=== PATIENT | female | born 1965 | race Caucasian/White ===

== ENCOUNTER 2017-11-17 20:35 | Emergency (ER) | payer OTHER ==
[~2017-11-17] VITALS: Ht 160 cm; Wt 85.0 kg
[~2017-11-17 20:35] MED LIST: ATEN1TAB75 PO; EXCETAB2; GABA300C3 PO; TRAM50TA PO; VENL75TA91 PO
[2017-11-17 20:53] VITALS: BP 167/96; PULSE 89; RESP 18; TEMP 98.3; O2SAT 98
[2017-11-17] MEDS ORDERED: GABA800T PO (21:07)
[2017-11-17] MEDS ORDERED: LITH300C2 PO (21:07)
[2017-11-17] MEDS ORDERED: ATEN100T PO (21:07)
[2017-11-17] MEDS ORDERED: HYDR-3366 PO (21:07)
[2017-11-17] MEDS ORDERED: SERO25TA PO (21:07)
[2017-11-17] MEDS ORDERED: ATENOLOL 100 MG TAB PO ONE (21:15)
--- NOTE | 2017-11-17 21:20 | PD ---
HPI Chief Complaint: Psychiatric Symptoms Time Seen by Provider: 21:04 Travel History International Travel<30 days: No Contact w/Intl Traveler<30days: No Traveled to known affect area: No History of Present Illness HPI 52-year-old white female presents emergency department under a [place] act by PD. Patient has history of bipolar disorder, chronic neck and back pain, neuropathy and hypertension. Patient states that she has been feeling increasingly depressed. She is in the process of being weaned off her Xanax and lithium and she is starting Seroquel. This is been going on for the past month. She states that she has had thoughts of self-harm. She also cuts. She last cut earlier this week to her left lower leg. She states that she feels suicidal but has no current plan. She would like help. She called police herself. She denies any self-harm today. No homicidal ideation. She did not take her evening dose of blood pressure medicine. She typically takes 100 mg of atenolol twice daily. PFSH Past Medical History Bipolar Disorder: Yes Anxiety: Yes Depression: Yes Hypertension: Yes Medical other: Yes (HIGH CALCIUM AND LOW VITAMIN D) Neurologic: Yes (NEUROPATHY FROM CHRONIC NECK AND BACK PAIN) Tetanus Vaccination: < 5 Years Influenza Vaccination: No ?: Not Menopausal: Yes Dilation and Curettage (D&C): Yes (X2) Tubal Ligation: Yes Past Surgical History Section: Yes Gynecologic Surgery: Yes (RIGHT LUMPECTOMY X2 WITH DUCT REMOVAL, LAP RIGHT OVARIAN CYST REMOVAL) Social History Alcohol Use: Yes (DAILY) Tobacco Use: Yes Substance Use: No Allergies-Medications (Allergen,Severity, Reaction): Coded Allergies: dexamethasone (Unverified Allergy, Severe, THROAT CLOSES UP, 04/04/17) Reported Meds & Prescriptions Reported Meds & Active Scripts Active Reported Gabapentin 800 Mg Tab 800 Mg PO DAILY [place] (Hydrocodone-Acetaminophen) 10-325 Mg Tab 1 Tab PO TID PRN Jackpot Carbonate 300 Mg Cap 300 Mg PO HS Seroquel (Quetiapine Fumarate) 25 Mg Tab 25 Mg PO HS Atenolol 100 Mg Tab 100 Mg PO BID Review of Systems Except as stated in HPI: all other systems reviewed are Neg General / Constitutional: No: Fever Eyes: No: Visual changes HENT: No: Headaches Cardiovascular: No: Chest Pain or Discomfort Respiratory: No: Shortness of Breath Gastrointestinal: No: Abdominal Pain Genitourinary: No: Dysuria Musculoskeletal: No: Pain Skin: No Rash Neurologic: No: Weakness Psychiatric: Positive: Depression, Suicidal Ideations, Mood Disorder, No: Anxiety, Disorder of Thought, Substance Abuse, Homicidal Ideation Endocrine: No: Polydipsia Hematologic/Lymphatic: No: Easy Bruising Physical Exam Narrative GENERAL: Well-nourished, well-developed patient. SKIN: Warm and dry. Patient has healing superficial cuts to her left proximal inner calf. No signs of infection. This is in the stages of healing. HEAD: Normocephalic and atraumatic. EYES: No scleral icterus. No injection or drainage. ENT: No nasal drainage noted. Mucous membranes pink. Airway patent. NECK: Supple, trachea midline. Moves head freely without obvious discomfort. CARDIOVASCULAR: Regular rate and rhythm without murmurs, gallops, or rubs. RESPIRATORY: Breath sounds equal bilaterally. No accessory muscle use. GASTROINTESTINAL: Abdomen soft, non-tender, nondistended. EXTREMITIES: No cyanosis or edema. BACK: Nontender without obvious deformity. No CVA tenderness. NEURO: Patient is alert and oriented. no sensorimotor deficits. Nonfocal. Normal speech. PSYCH: No delusions. No auditory or visual hallucinations. Data Data Last Documented VS Vital Signs Date Time Temp Pulse Resp B/P (MAP) Pulse Ox O2 Delivery O2 Flow Rate FiO2 11/17/17 20:53 98.3 89 18 167/96 (119) 98 Orders Orders Complete Blood Count With Diff (11/17/17 21:13) Comprehensive Metabolic Panel (11/17/17 21:13) Thyroid Stimulating Hormone (11/17/17 21:13) Psych Screen (11/17/17 21:13) Jackpot (Li) (11/17/17 21:13) Drug Screen, Random Urine (11/17/17 21:13) Alcohol (Ethanol) (11/17/17 21:13) Salicylates (Aspirin) (11/17/17 21:13) Tylenol (Acetaminophen) (11/17/17 21:13) Atenolol (Tenormin) (11/17/17 21:15) Labs Laboratory Tests Test 11/17/17 21:20 White Blood Count 6.5 TH/MM3 Red Blood Count 4.63 MIL/MM3 Hemoglobin 15.0 GM/DL Hematocrit 43.8 % Mean Corpuscular Volume 94.4 FL Mean Corpuscular Hemoglobin 32.3 PG Mean Corpuscular Hemoglobin Concent 34.2 % Red Cell Distribution Width 13.0 % Platelet Count 270 TH/MM3 Mean Platelet Volume 9.9 FL Neutrophils (%) (Auto) 44.4 % Lymphocytes (%) (Auto) 46.5 % Monocytes (%) (Auto) 5.1 % Eosinophils (%) (Auto) 2.7 % Basophils (%) (Auto) 1.3 % Neutrophils # (Auto) 2.9 TH/MM3 Lymphocytes # (Auto) 3.0 TH/MM3 Monocytes # (Auto) 0.3 TH/MM3 Eosinophils # (Auto) 0.2 TH/MM3 Basophils # (Auto) 0.1 TH/MM3 CBC Comment DIFF FINAL Differential Comment Blood Urea Nitrogen 14 MG/DL Creatinine 0.85 MG/DL Random Glucose 93 MG/DL Total Protein 8.3 GM/DL Albumin 4.3 GM/DL Calcium Level 9.0 MG/DL Alkaline Phosphatase 62 U/L Aspartate Amino Transf (AST/SGOT) 25 U/L Alanine Aminotransferase (ALT/SGPT) 24 U/L Total Bilirubin 0.4 MG/DL Sodium Level 140 MEQ/L Potassium Level 3.9 MEQ/L Chloride Level 109 MEQ/L Carbon Dioxide Level 19.5 MEQ/L Anion Gap 12 MEQ/L Estimat Glomerular Filtration Rate 71 ML/MIN Thyroid Stimulating Hormone 3rd Gen 1.080 uIU/ML Salicylates Level 5.0 MG/DL Urine Opiates Screen NEG Acetaminophen Level LESS THAN 2.0 MCG/ML Urine Barbiturates Screen NEG Urine Amphetamines Screen NEG Urine Benzodiazepines Screen NEG Jackpot Level 0.2 MEQ/L Urine Cocaine Screen NEG Urine Cannabinoids Screen NEG Ethyl Alcohol Level 216 MG/DL MDM Medical Decision Making Medical Screen Exam Complete: Yes Emergency Medical Condition: Yes Medical Record Reviewed: Yes Interpretation(s) Laboratory Tests Test 11/17/17 21:20 White Blood Count 6.5 TH/MM3 Red Blood Count 4.63 MIL/MM3 Hemoglobin 15.0 GM/DL Hematocrit 43.8 % Mean Corpuscular Volume 94.4 FL Mean Corpuscular Hemoglobin 32.3 PG Mean Corpuscular Hemoglobin Concent 34.2 % Red Cell Distribution Width 13.0 % Platelet Count 270 TH/MM3 Mean Platelet Volume 9.9 FL Neutrophils (%) (Auto) 44.4 % Lymphocytes (%) (Auto) 46.5 % Monocytes (%) (Auto) 5.1 % Eosinophils (%) (Auto) 2.7 % Basophils (%) (Auto) 1.3 % Neutrophils # (Auto) 2.9 TH/MM3 Lymphocytes # (Auto) 3.0 TH/MM3 Monocytes # (Auto) 0.3 TH/MM3 Eosinophils # (Auto) 0.2 TH/MM3 Basophils # (Auto) 0.1 TH/MM3 CBC Comment DIFF FINAL Differential Comment Blood Urea Nitrogen 14 MG/DL Creatinine 0.85 MG/DL Random Glucose 93 MG/DL Total Protein 8.3 GM/DL Albumin 4.3 GM/DL Calcium Level 9.0 MG/DL Alkaline Phosphatase 62 U/L Aspartate Amino Transf (AST/SGOT) 25 U/L Alanine Aminotransferase (ALT/SGPT) 24 U/L Total Bilirubin 0.4 MG/DL Sodium Level 140 MEQ/L Potassium Level 3.9 MEQ/L Chloride Level 109 MEQ/L Carbon Dioxide Level 19.5 MEQ/L Anion Gap 12 MEQ/L Estimat Glomerular Filtration Rate 71 ML/MIN Thyroid Stimulating Hormone 3rd Gen 1.080 uIU/ML Salicylates Level 5.0 MG/DL Urine Opiates Screen NEG Acetaminophen Level LESS THAN 2.0 MCG/ML Urine Barbiturates Screen NEG Urine Amphetamines Screen NEG Urine Benzodiazepines Screen NEG Jackpot Level 0.2 MEQ/L Urine Cocaine Screen NEG Urine Cannabinoids Screen NEG Ethyl Alcohol Level 216 MG/DL Differential Diagnosis MDM: High Differential diagnoses: Schizophrenia, schizoaffective disorder, bipolar, anxiety, depression, adjustment reaction, mood disorder NOS, ODD, depressive disorder NOS, dementia, dementia with agitation, psychosis NOS, substance induced mood disorder, DMDD, Asperger syndrome, infection,electrolyte abnormality, malingering. Narrative Course Mental health screening discussed with the patient. Psychiatric screen ordered. Patient is given her atenolol 100 mg p.o. here. The patient is now requesting the rest of her eating medications. She does have her bottles containing all of her medications. The patient is allowed to take her evening medications. This will be documented in the nursing note. The patient has been medically cleared. This is medical clearance for psychiatric admission, bipolar, cutting Diagnosis Primary Impression: Medical clearance for psychiatric admission Additional Impressions: Bipolar Cutting Condition: Stable Jonel Zee Nov 17, 2017 21:20
[2017-11-17 21:42] LABS: AUTOMATED NEUTROPHIL # 2.9 TH/MM3 (1.8-7.7); BASOPHIL # 0.1 TH/MM3 (0-0.2); BASOPHIL % 1.3 % (0.0-2.0); EOSINOPHIL # 0.2 TH/MM3 (0-0.4); EOSINOPHIL % 2.7 % (0.0-4.0); HEMATOCRIT 43.8 % (35.0-46.0); LYMPH % 46.5 % (9.0-44.0); MEAN CELL VOLUME 94.4 FL (80.0-100.0); MEAN CORPUSCULAR HEMOGLOBIN 32.3 PG (27.0-34.0); MEAN CORPUSCULAR HGB CONC 34.2 % (32.0-36.0); MEAN PLATELET VOLUME 9.9 FL (7.0-11.0); MONO % 5.1 % (0.0-8.0); MONOCYTE # 0.3 TH/MM3 (0-0.9); NEUT % 44.4 % (16.0-70.0); PLATELET COUNT 270 TH/MM3 (150-450); RED BLOOD COUNT 4.63 MIL/MM3 (4.00-5.30); WHITE BLOOD COUNT 6.5 TH/MM3 (4.0-11.0)
[2017-11-17 21:52] LABS: ALBUMIN 4.3 GM/DL (3.4-5.0); ALT (GPT) 24 U/L (10-53); AST (GOT) 25 U/L (15-37); BICARBONATE 19.5 MEQ/L (21.0-32.0); BLOOD UREA NITROGEN 14 MG/DL (7-18); CHLORIDE 109 MEQ/L (98-107); CREATININE 0.85 MG/DL (0.50-1.00); GLOMERULAR FILTRATION RATE 71 ML/MIN (>89); GLUCOSE,RANDOM 93 MG/DL (74-106); SODIUM (NA) 140 MEQ/L (136-145)
[2017-11-17 22:02] LABS: ALKALINE PHOSPHATASE 62 U/L (45-117); TOTAL BILIRUBIN ADULT 0.4 MG/DL (0.2-1.0); TOTAL PROTEIN 8.3 GM/DL (6.4-8.2)
[2017-11-17 22:04] LABS: ACETAMINOPHEN LESS THAN 2.0 MCG/ML (10.0-30.0)
[2017-11-18 07:10] VITALS: BP 144/66; PULSE 66; RESP 19; O2SAT 98
[2017-11-18 17:43] VITALS: BP 125/75; PULSE 80; RESP 16; O2SAT 97
[2017-11-19 02:47] VITALS: BP 162/88; PULSE 90; RESP 16; O2SAT 98
[2017-11-19] MEDS ORDERED: ATENOLOL 100 MG TAB PO ONE (03:00)
--- NOTE | 2017-11-19 07:51 | PD ---
Physical Exam Date Seen by Provider: Nov 19, 2017 Time Seen by Provider: 07:49 Narrative 52-year-old female previously brought in under the [place] act and medically cleared for psychiatric evaluation, has been seen by the psychiatrist and deemed psychiatrically stable for discharge at this time. Patient remains medically stable for discharge. Follow-up will be based on the psychiatric note. Data Data Last Documented VS Vital Signs Date Time Temp Pulse Resp B/P (MAP) Pulse Ox O2 Delivery O2 Flow Rate FiO2 11/19/17 02:47 90 16 162/88 (112) 98 Room Air 11/17/17 20:53 98.3 Orders Orders Complete Blood Count With Diff (11/17/17 21:13) Comprehensive Metabolic Panel (11/17/17 21:13) Thyroid Stimulating Hormone (11/17/17 21:13) Psych Screen (11/17/17 21:13) [place] (Li) (11/17/17 21:13) Drug Screen, Random Urine (11/17/17 21:13) Alcohol (Ethanol) (11/17/17 21:13) Salicylates (Aspirin) (11/17/17 21:13) Tylenol (Acetaminophen) (11/17/17 21:13) Atenolol (Tenormin) (11/17/17 21:15) Diet Regular Basic (11/18/17 Breakfast) Atenolol (Tenormin) (11/19/17 03:00) Diet Regular Basic (11/19/17 Breakfast) Labs Laboratory Tests Test 11/17/17 21:20 White Blood Count 6.5 TH/MM3 Red Blood Count 4.63 MIL/MM3 Hemoglobin 15.0 GM/DL Hematocrit 43.8 % Mean Corpuscular Volume 94.4 FL Mean Corpuscular Hemoglobin 32.3 PG Mean Corpuscular Hemoglobin Concent 34.2 % Red Cell Distribution Width 13.0 % Platelet Count 270 TH/MM3 Mean Platelet Volume 9.9 FL Neutrophils (%) (Auto) 44.4 % Lymphocytes (%) (Auto) 46.5 % Monocytes (%) (Auto) 5.1 % Eosinophils (%) (Auto) 2.7 % Basophils (%) (Auto) 1.3 % Neutrophils # (Auto) 2.9 TH/MM3 Lymphocytes # (Auto) 3.0 TH/MM3 Monocytes # (Auto) 0.3 TH/MM3 Eosinophils # (Auto) 0.2 TH/MM3 Basophils # (Auto) 0.1 TH/MM3 CBC Comment DIFF FINAL Differential Comment Blood Urea Nitrogen 14 MG/DL Creatinine 0.85 MG/DL Random Glucose 93 MG/DL Total Protein 8.3 GM/DL Albumin 4.3 GM/DL Calcium Level 9.0 MG/DL Alkaline Phosphatase 62 U/L Aspartate Amino Transf (AST/SGOT) 25 U/L Alanine Aminotransferase (ALT/SGPT) 24 U/L Total Bilirubin 0.4 MG/DL Sodium Level 140 MEQ/L Potassium Level 3.9 MEQ/L Chloride Level 109 MEQ/L Carbon Dioxide Level 19.5 MEQ/L Anion Gap 12 MEQ/L Estimat Glomerular Filtration Rate 71 ML/MIN Thyroid Stimulating Hormone 3rd Gen 1.080 uIU/ML Salicylates Level 5.0 MG/DL Urine Opiates Screen NEG Acetaminophen Level LESS THAN 2.0 MCG/ML Urine Barbiturates Screen NEG Urine Amphetamines Screen NEG Urine Benzodiazepines Screen NEG [place] Level 0.2 MEQ/L Urine Cocaine Screen NEG Urine Cannabinoids Screen NEG Ethyl Alcohol Level 216 MG/DL [facility] Medical Record Reviewed: Yes Supervised Visit with MELANI: Yes Narrative Course 52-year-old female previously brought in under the [place] act and medically cleared for psychiatric evaluation, has been seen by the psychiatrist and deemed psychiatrically stable for discharge at this time. Patient remains medically stable for discharge. Follow-up will be based on the psychiatric note. Diagnosis Primary Impression: Medical clearance for psychiatric admission Additional Impressions: Bipolar Cutting Referrals: Primary Care Physician Psychiatrist Patient Instructions: General Instructions Disposition: 01 DISCHARGE HOME Condition: Stable Nicholas Marques Nov 19, 2017 07:51
[2017-11-19 08:00] VITALS: BP 171/90; PULSE 83; RESP 17; TEMP 98.5; O2SAT 98
[2017-11-19 08:11] VITALS: BP 171/90; TEMP 98.5
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
== END 2017-11-19 08:21 | disposition home or self-care (01) ==
LOC: NEPD 20:35
DX: F10.14 Alcohol abuse with alcohol-induced mood disorder (principal); Y90.7 Blood alcohol level of 200-239 mg/100 ml; F31.9 Bipolar disorder, unspecified; R45.851 Suicidal ideations; G62.9 Polyneuropathy, unspecified; I10 Essential (primary) hypertension; M79.7 Fibromyalgia; Z72.0 Tobacco use; Z91.5 Personal history of self-harm
CPT/HCPCS: 80053; 80178; 80307; 84443; 85025; 99284

== ENCOUNTER 2018-02-05 16:19 | Emergency (ER) | payer OTHER ==
[~2018-02-05] VITALS: Ht 160 cm; Wt 84.0 kg
[~2018-02-05 16:19] MED LIST changes: +ATEN100T PO; -ATEN1TAB75 PO; -EXCETAB2; -GABA300C3 PO; +GABA800T PO; +HYDR-3366 PO; +LITH300C2 PO; +SERO25TA PO; -TRAM50TA PO; -VENL75TA91 PO
[2018-02-05] MEDS ORDERED: IPRAAER INH (17:34)
[2018-02-05] MEDS ORDERED: VITD400 PO (17:38)
[2018-02-05] MEDS ORDERED: CLON0.2T PO (17:39)
[2018-02-05] MEDS ORDERED: LISI-515 PO (17:39)
[2018-02-05] MEDS ORDERED: OMEG1CAP41 (17:42)
[2018-02-05] MEDS ORDERED: VISI0.053 EACH EYE (17:43)
[2018-02-05] MEDS ORDERED: IBUPROFEN 800 MG TAB PO ONE (18:15)
--- NOTE | 2018-02-05 18:31 | PD ---
HPI Chief Complaint: Psychiatric Symptoms Time Seen by Provider: 18:12 Travel History International Travel<30 days: No Contact w/Intl Traveler<30days: No Traveled to known affect area: No History of Present Illness HPI 52-year-old female presents to the emergency department under Alvares act. She was sent here from [facility], after being medically cleared, for psychological evaluation. According to medical records from [facility] the patient took 50, 100 mg atenolol in an attempt to kill herself on February 03. The patient admits to taking the medications. She says she was drunk at the time and has been drinking daily, and her action was exacerbated by her alcohol use. She denies suicidal ideation at this time. She has history of suicidal attempt by overdosing on pills in the past. She denies homicidal ideations. Denies auditory or visual hallucinations. Denies illicit drug use. Aggravated by alcohol use. No known relieving factors. Symptoms are moderate to severe in severity. Duration chronic. She is complaining of a headache that has been on and off. She denies chest pain, shortness of breath, abdominal pain, nausea, vomiting, change in urine or stool. She is complaining of left upper back pain also. Denies anticoagulant therapy. Primary care provider is Dr. Rodas. Allergies to dexamethasone. History of bipolar disorder and hypertension. Has no other medical complaints. No other modifying factors or associated signs and symptoms. PFSH Past Medical History Bipolar Disorder: Yes Anxiety: Yes Depression: Yes Patient Takes Glucophage: No Hypertension: Yes Neurologic: Yes (NEUROPATHY FROM CHRONIC NECK AND BACK PAIN) Reproductive: Yes ?: Not Menopausal: Yes : 3 Para: 2 Miscarriage: 0 : 1 Dilation and Curettage (D&C): Yes (X2) Tubal Ligation: Yes Past Surgical History Section: Yes Gynecologic Surgery: Yes (RIGHT LUMPECTOMY X2 WITH DUCT REMOVAL, LAP RIGHT OVARIAN CYST REMOVAL) Social History Alcohol Use: Yes (DAILY) Tobacco Use: Yes Substance Use: No Allergies-Medications (Allergen,Severity, Reaction): Coded Allergies: dexamethasone (Unverified Allergy, Severe, THROAT CLOSES UP, 02/05/18) Per pt. Reported Meds & Prescriptions Reported Meds & Active Scripts Active Reported Visine Opth Drops (Tetrahydrozoline Opth Drops) 0.05 % Elina 1 Drop EACH EYE QID Whick 3-6-9 1,200 mg Softgel (Fish Oil/Borage/Flax/Om3,6,9#1) 1,200 Mg Capsule Lisinopril 20 Mg Tab 20 Mg PO DAILY Clonidine (Clonidine HCl) 0.2 Mg Tab 0.2 Mg PO BID PRN Vitamin D3 (Cholecalciferol) 400 Unit Tab 400 Units PO DAILY Combivent Respimat Inh (Ipratropium-Albuterol Inh) 20-100 Long Term/Act Aero 1 Puff INH QID PRN Gabapentin 800 Mg Tab 800 Mg PO DAILY Seroquel (Quetiapine Fumarate) 25 Mg Tab 25 Mg PO HS Atenolol 100 Mg Tab 100 Mg PO BID Review of Systems Except as stated in HPI: all other systems reviewed are Neg Physical Exam Narrative GENERAL: Well-nourished, well-developed feet patient, in no acute distress SKIN: Warm and dry. Skin to left upper back is normal in appearance. HEAD: Atraumatic. Normocephalic. EYES: Pupils equal and round. ENT: Mucosa pink and moist. NECK: Supple. Trachea midline. CARDIOVASCULAR: Regular rate and rhythm. No murmur appreciated. RESPIRATORY: No accessory muscle use. Clear to auscultation. Breath sounds equal bilaterally. GASTROINTESTINAL: Abdomen soft, non-tender, nondistended. Hepatic and splenic margins not palpable. Bowel sounds are active 4 quadrants. MUSCULOSKELETAL: No obvious deformities. No clubbing. No cyanosis. No edema. BACK: No CVA tenderness. Reproducible tenderness to the left upper trapezius musculature of the back. NEUROLOGICAL: Awake and alert. Oriented 3. No obvious cranial nerve deficits. Motor grossly within normal limits. Normal speech. Moves all extremities. 5/5 strength to all extremities. PSYCHIATRIC: No delusional thought processes. No hallucinations. Data Data Orders Orders Diet Regular Basic (02/05/18 Dinner) Ibuprofen (Motrin) (02/05/18 18:15) MDM Medical Decision Making Medical Screen Exam Complete: Yes Emergency Medical Condition: Yes Medical Record Reviewed: Yes Differential Diagnosis Suicidal attempt, overdose, medical clearance for psychiatric admission Narrative Course Patient presents under a Alvares act. She is transferred from [facility] after medical clearance. I reviewed her medical records from [facility] and her labs, urinalysis unremarkable. Physical examination and vital signs are essentially unremarkable. Patient complaining of headache and left upper back pain. Ibuprofen ordered. Psych screen has been ordered. laboratory results are unremarkable, the patient will be medically cleared for psychiatric evaluation and disposition. Diagnosis Primary Impression: Medical clearance for psychiatric admission Additional Impression: Suicide attempt Condition: Stable Carrie Mejia Feb 05, 2018 18:31
[2018-02-05 18:41] VITALS: BP 194/102; PULSE 72; RESP 20; TEMP 97.8; O2SAT 98
[2018-02-05] MEDS: ATENOLOL 100 MG TAB PO SCH (20:22)
[2018-02-05 22:02] VITALS: BP 158/90; PULSE 78; RESP 12
[2018-02-05 23:30] VITALS: BP 168/94; PULSE 82
[2018-02-06] MEDS ORDERED: cloNIDine HCL 0.2 MG TAB PO ONE (00:15)
[2018-02-06 02:00] VITALS: BP 168/98; PULSE 75; RESP 16; O2SAT 99
[2018-02-06 06:39] VITALS: BP 172/96; PULSE 76
[2018-02-06] MEDS: ATENOLOL 100 MG TAB PO SCH (09:00)
--- NOTE | 2018-02-06 09:30 | PD ---
Data Data Last Documented VS Vital Signs Date Time Temp Pulse Resp B/P (MAP) Pulse Ox O2 Delivery O2 Flow Rate FiO2 02/06/18 06:39 76 172/96 (121) 02/06/18 02:00 16 99 Room Air 02/05/18 18:41 97.8 Orders Orders Diet Regular Basic (02/05/18 Dinner) Ibuprofen (Motrin) (02/05/18 18:15) Atenolol (Tenormin) (02/05/18 21:00) Clonidine (Catapres) (02/06/18 00:15) Diet Regular Basic (02/06/18 Breakfast) Ed Discharge Order (02/06/18 09:28) MDM Medical Record Reviewed: Yes Supervised Visit with MELANI: Yes Narrative Course Patient seen and evaluated by Dr. Kincaid with psychiatry, she was deemed safe to be discharged home, Alvares act was lifted by Dr. Kincaid. Patient was given outpatient follow-up. DX: Alcohol induced mood disorder Diagnosis Primary Impression: Medical clearance for psychiatric admission Additional Impressions: Suicide attempt Alcohol abuse with alcohol-induced mood disorder Referrals: [facility] Patient Instructions: General Instructions Additional Instruction: Please follow up with your primary care doctor in 2-3 days Return to the ER if symptoms worsen or progress Return to the ER as needed Disposition: 01 DISCHARGE HOME Condition: Stable María Elena Domínguez DO Feb 06, 2018 09:30
--- NOTE | 2018-02-06 16:08 | PD.PSY.CON ---
Provisional Diagnosis Admission Date [place] I. Polysubstance dependence including alcohol, cocaine, Xanax, history of bipolar disorder [place] II. Borderline personality disorder [place] III. Lower back pain History of Present Illness Service Psychiatry Consult Requested By Suicidal ideation Reason for Consult Suicidal ideation Primary Care Physician Unknown HPI The patient was seen this morning at 8:30 AM The patient is 52-year-old woman, domiciled with her in [place], unemployed, supported by [facility], with psychiatric history of bipolar disorder, polysubstance dependence including Xanax, cocaine, alcohol, opiates, with an extensive history of multiple psychiatric hospitalizations, self cutting behavior, multiple suicidal attempts, she is not in psychotropics, medical history of back pain, who presents to the emergency department under Alvares act. She was sent here from [facility], after being medically cleared, for psychiatric evaluation. According to medical records from [facility] the patient took 50, 100 mg atenolol in an attempt to kill herself on February 03. The patient admits to taking the medications. She says she was drunk at the time and has been drinking daily, and her action was exacerbated by her alcohol use. She denies suicidal ideation at this time. She has history of suicidal attempt by overdosing on pills in the past. She denies homicidal ideations. Denies auditory or visual hallucinations. Denies illicit drug use. Aggravated by alcohol use. No known relieving factors. Symptoms are moderate to severe in severity. Duration operations specialist that has been on and off. She denies chest pain, shortness of breath, abdominal pain, nausea, vomiting, change in urine or stool. She is complaining of left upper back pain also. Denies anticoagulant therapy. Primary care provider is Dr. Rodas. Allergies to dexamethasone. On psychiatric evaluation today the patient is calm , cooperative. She reports that last night she was quite drunk when she took pills impulsively. The patient reports that her intention was not to kill herself, she was just drunk and crazy. The patient reports that she understand that she is a drug addict and she needs help, her major problem right now is the alcohol abuse. She is open to look for help. She denies suicidal and homicidal ideation, she denies visual and auditory hallucinations. Denies depression, anxiety, symptoms of withdrawal, denies psychosis. She is logical, coherent and relevant. Oriented 3. Review of Systems Constitutional: DENIES: Diaphoretic episodes, Fatigue, Fever, Weight gain, Weight loss, Chills, Dizziness, Change in appetite, Night Sweats Endocrine: DENIES: Abnorml menstrual pattern, Heat/cold intolerance, Polydipsia , Polyuria, Polyphagia Eyes: DENIES: Blurred vision, Diplopia, Eye inflammation, Eye pain, Vision loss , Photosensitivity, Double Vision Ears, nose, mouth, throat: DENIES: Tinnitus, Hearing loss, Vertigo, Nasal discharge, Oral lesions, Throat pain, Hoarseness, Ear Pain, Running Nose, Epistaxis, Sinus Pain, Toothache, Odynophagia Respiratory: DENIES: Apneas, Cough, Snoring, Wheezing, Hemoptysis, Sputum production, Shortness of breath Cardiovascular: DENIES: Chest pain, Palpitations, Syncope, Dyspnea on Exertion , PND, Lower Extremity Edema, Orthopnea, Claudication Gastrointestinal: DENIES: Abdominal pain, Black stools, Bloody stools, Constipation, Diarrhea, Nausea, Vomiting, Difficulty Swallowing, Anorexia Genitourinary: DENIES: Abnormal vaginal bleeding, Dysmenorrhea, Dyspareunia, Sexual dysfunction, Urinary frequency, Urinary incontinence, Urgency, Hematuria , Dysuria, Nocturia, Vaginal discharge Musculoskeletal: DENIES: Joint pain, Muscle aches, Stiffness, Joint Swelling, Back pain, Neck pain Integumentary: DENIES: Abnormal pigmentation, Pruritus, Rash, Nail changes, Breast masses, Breast skin changes, Nipple discharge Hematologic/lymphatic: DENIES: Bruising, Lymphadenopathy Immunologic/allergic: DENIES: Eczema, Urticaria Neurologic: DENIES: Abnormal gait, Headache, Localized weakness, Paresthesias, Seizures, Speech Problems, Tremor, Poor Balance Psychiatric: DENIES: Anxiety, Confusion, Mood changes, Depression, Hallucinations, Agitation, Suicidal Ideation, Homicidal Ideation, Delusions Past Family Social History Coded Allergies: dexamethasone (Unverified Allergy, Severe, THROAT CLOSES UP, 02/05/18) Per pt. Reported Medications Tetrahydrozoline Opth Drops (Visine Opth Drops) 0.05 % Elina, 1 DROP EACH EYE QID , #1 BOTTLE 0 Refills 02/05/18 Fish Oil/Borage/Flax/Om3,6,9#1 ([place] 3-6-9 1,200 mg Softgel) 1,200 Mg Capsule 02/05/18 Lisinopril (Lisinopril) 20 Mg Tab, 20 MG PO DAILY, #30 TAB 0 Refills 02/05/18 Clonidine (Clonidine) 0.2 Mg Tab, 0.2 MG PO BID Y for BP>160/80, #60 TAB 0 Refills 02/05/18 Cholecalciferol (Vitamin D3) 400 Unit Tab, 400 UNITS PO DAILY for Nutritional Supplement, #1 TAB 0 Refills 02/05/18 Ipratropium-Albuterol Inh (Combivent Respimat Inh) 20-100 Assisted/Act Aero, 1 PUFF INH QID Y for SOB/WHEEZING, #1 INHALER 0 Refills 02/05/18 Gabapentin (Gabapentin) 800 Mg Tab, 800 MG PO DAILY, #90 TAB 0 Refills 11/17/17 Quetiapine (Seroquel) 25 Mg Tab, 25 MG PO HS, #30 TAB 0 Refills 11/17/17 Atenolol (Atenolol) 100 Mg Tab, 100 MG PO BID for Blood Pressure Management, # 60 TAB 0 Refills 11/17/17 Discontinued Reported Medications Hydrocodone-Acetaminophen ([place]) 10-325 Mg Tab, 1 TAB PO TID Y for PAIN, TAB 0 Refills 11/17/17 [place] Carbonate ([place] Carbonate) 300 Mg Cap, 300 MG PO HS, CAP 0 Refills 11/17/17 Family Psych History No family psychiatric history Social History The patient was born and raised in [place], she losing [place] with her , no kids, unemployed, supported by [employer], her highest level of education is some college Patient's Strengths (min. 2) Verbal communication Physical Exam No tremors, no EPS, no psychomotor agitation retardation Vital Signs Vital Signs Date Time Temp Pulse Resp B/P (MAP) Pulse Ox O2 Delivery O2 Flow Rate FiO2 02/06/18 10:24 02/06/18 06:39 76 02/06/18 02:00 16 99 Room Air 02/05/18 18:41 97.8 Mental Status Examination Appearance: Appropriate Consciousness: Alert Orientation: x4 Motor Activity: Normal gait Speech: Unremarkable Language: Adequate Fund of Knowledge: Adequate Attention and Concentration: Adequate Memory: Unremarkable Mood: Appropriate Affect: Appropriate Thought Process & Associations: Intact Thought Content: Appropriate Hallucination Type: None Delusion Type: None Suicidal Ideation: No Suicidal Plan: No Suicidal Intention: No Homicidal Ideation: No Homicidal Plan: No Homicidal Intention: No Insight: Adequate Judgment: Adequate Assessment & Plan Problem List: (1) Alcohol abuse with alcohol-induced mood disorder ICD Codes: F10.14 - Alcohol abuse with alcohol-induced mood disorder Assessment & Plan: On psychiatric evaluation today the patient does not present any significant, acute or concerning objective or subjective symptomatology of depression, anxiety, annemarie or psychosis. The patient denies suicidal enemas ideation, she denies visual and auditory hallucinations. The patient is oriented 3, calm, cooperative, logical, coherent and relevant. This is a patient with a prominent psychiatric history of bipolar disorder, polysubstance dependence including alcohol, cocaine, Xanax, opiates, multiple psychiatric hospitalizations, multiple suicidal attempts, extensive self cutting behavior without SI. Her recent suicidal attempt by overdosing with "some hypertensive pills" seems to be the result of acute alcohol intoxication, and also maladaptive use of medication, impulsive behavior related with her clinically significant cluster B traits. I really suspect that this patient may very well the criteria of borderline personality disorder. At this moment she does not meet the criteria for involuntary psychiatric admission. She seems to have some insight and seems to be in a contemplation state of her drug addiction, for this reason I have spent some time with her given her some motivation to engage in an outpatient program of detox/rehab. Several resources referral has been provided to the patient. Alvares act will be lifted Assessment & Plan Estimated LOS: Kris Reyna MD Feb 06, 2018 16:08
== END 2018-02-06 10:34 | disposition home or self-care (01) ==
LOC: NEPJ 16:19
DX: R45.851 Suicidal ideations (principal); F10.14 Alcohol abuse with alcohol-induced mood disorder; R51 Headache; M54.9 Dorsalgia, unspecified; F31.9 Bipolar disorder, unspecified; F41.9 Anxiety disorder, unspecified; I10 Essential (primary) hypertension; G62.9 Polyneuropathy, unspecified; Z79.899 Other long term (current) drug therapy; Z88.8 Allergy status to other drugs, medicaments and biological substances; Z72.0 Tobacco use
CPT/HCPCS: 99284